=== PATIENT | male | born 1970 | race Caucasian/White ===

== ENCOUNTER 2016-12-06 14:06 | Emergency (ER) | payer OTHER | END 2016-12-06 15:25 | disposition home or self-care (01) | LOC: FASTR 14:06 | DX: M77.8 Other enthesopathies, not elsewhere classified (principal); X50.3XXA Overexertion from repetitive movements, initial encounter; Y92.009 Unspecified place in unspecified non-institutional (private) residence as the place of occurrence of the external cause; F17.210 Nicotine dependence, cigarettes, uncomplicated ==